=== PATIENT | female | born 1965 | race Caucasian/White ===

== ENCOUNTER 2020-06-24 07:36 | Outpatient (CLI) | payer MEDICARE, MEDICAID, SELFPAY ==
--- NOTE | ~2020-06-24 | US_ITS ---
EXAMINATION: US aorta DATE: 06/24/2020 09:15 INDICATION: Aortic ectasia TECHNIQUE: Grayscale, color Doppler, and pulsed Doppler images of the aorta and common iliac arteries were obtained. COMPARISON: None. FINDINGS: The proximal aorta measures 2.0 cm. The mid aorta measures 1.6 cm. Infrarenal fusiform distal aortic aneurysm measuring 3.4 cm in maximal diameter. The right common iliac artery measures 1.2 cm. The lef t common iliac artery measures 1.0 cm. IMPRESSION: 1. 3.4 cm fusiform infrarenal abdominal aortic aneurysm. Reviewed, dictated and finalized at location A.
== END 2020-06-24 07:37 | disposition home or self-care (01) ==
LOC: CHSIMG 07:40
PROVIDERS: PCP Physician Assistant; Visit Provider Physician Assistant
DX: I77.811 Abdominal aortic ectasia (principal)
CPT/HCPCS: 76775

== ENCOUNTER 2020-12-24 07:38 | Outpatient (CLI) | payer OTHER, SELFPAY ==
--- NOTE | ~2020-12-24 | US_ITS ---
EXAMINATION: US aorta DATE: 12/24/2020 08:39 IV THERAPY NURSE INDICATION: [place] aortic aneurysm. TECHNIQUE: Grayscale, color Doppler, and pulsed Doppler images of the aorta and common iliac arteries were obtained. COMPARISON: Ultrasound dated 06/24/2020. FINDINGS: The proximal aorta measures 2.4 cm greatest sagittal dimension. The mid aorta measures 1.7 cm greates t sagittal dimension. The distal aorta measures 3.4 cm greatest sagittal dimension. The infrarenal ab dominal aortic aneurysm has a fusiform appearance and is partially thrombosed. There is moderate diff use atherosclerosis. The iliac arteries are not visualized. IMPRESSION: 1. Stable fusiform infrarenal abdominal aortic aneurysm measuring 3.4 cm. Reviewed, dictated and finalized at location A. THERAPY NURSE
[2020-12-24 07:52] LABS: Basophils Absolute Auto 0.04 K/mm3 (0.00-0.10); Basophils Percent Auto 0.5 % (0.0-1.0); Eosinophils Absolute Auto 0.11 K/mm3 (0.02-0.50); Eosinophils Percent Auto 1.4 % (1.0-6.0); Hematocrit 45.8 % (35.0-49.0); Hemoglobin 14.7 g/dL (12.0-15.0); Immature Granulocyte Absolute 0.03 K/mm3 (0.00-0.00); Immature Granulocyte Percent A 0.4 % (0.0-0.0); Lymphocytes Absolute Auto 2.59 K/mm3 (1.10-4.50); Lymphocytes Percent Auto 33.6 % (18.0-42.0); Mean Corpuscular HGB Conc 32.1 g/dL (32.0-36.0); Mean Corpuscular Hemoglobin 31.3 pg (27.0-31.0); Mean Corpuscular Volume 97.7 fL (78.0-102.0); Mean Platelet Volume 10.3 fl (9.2-11.8); Monocytes Absolute Auto 0.64 K/mm3 (0.10-0.90); Monocytes Percent Auto 8.3 % (2.0-11.0); Neutrophils Absolute Auto 4.3 K/mm3 (1.7-7.2); Neutrophils Percent Auto 55.8 % (50.0-70.0); Platelet Count Result 234 K/mm3 (150-420); Red Blood Count 4.69 M/mm3 (4.20-5.40); Red Cell Distribution Width 13.7 % (11.6-14.4); White Blood Count 7.7 K/mm3 (4.8-10.8)
[2020-12-24 08:47] LABS: Alanine Aminotransferase 40 U/L (14-59); Albumin Level 3.2 g/dL (3.4-5.0); Alkaline Phosphatase 138 U/L (46-116); Anion Gap 7 mmol/L (8-16); Aspartate Amino Transferase 20 U/L (15-37); Bilirubin,Total 0.2 mg/dL (0.00-1.00); Blood Urea Nitrogen 18 mg/dL (7-18); Calcium 9.3 mg/dL (8.5-10.1); Carbon Dioxide 31 mmol/L (21-32); Chloride 105 mmol/L (98-108); Estimated Glomerular Filt Rate > 60; Glucose 113 mg/dL (70-99); Osmolality Calculated 298 mOsm/kg (285-295); Potassium 3.8 mmol/L (3.5-5.1); Sodium 143 mmol/L (136-145); Total Protein 6.6 g/dL (6.4-8.2)
[2020-12-24 08:49] LABS: CRP < 0.2 mg/dL (0.0-0.9)
[2020-12-24 09:07] LABS: Erythrocyte Sedimentation Rate 22 mm/hr (0-20)
== END 2020-12-24 07:39 | disposition home or self-care (01) ==
PROVIDERS: PCP Family Medicine; Visit Provider Internal Medicine
DX: T84.9XXA Unspecified complication of internal orthopedic prosthetic device, implant and graft, initial encounter (principal); I71.4 Abdominal aortic aneurysm, without rupture
CPT/HCPCS: 36415; 76775; 80053; 85025; 85652; 86140

== ENCOUNTER 2021-06-30 08:41 | Outpatient (CLI) | payer MEDICARE, MEDICAID, SELFPAY ==
--- NOTE | ~2021-06-30 | US_ITS ---
EXAMINATION: US aorta DATE: 06/30/2021 09:15 INDICATION: Abdominal aortic aneurysm TECHNIQUE: Grayscale, color Doppler, and pulsed Doppler images of the aorta and common iliac arteries were obtained. COMPARISON: None. FINDINGS: The proximal aorta measures 1.3 cm. Fusiform aneurysm of the mid to distal abdominal aorta measuring 3.0 cm the mid aorta, 3.4 cm in the mid to distal aorta tapering distally to the aortic bifurcation w hich is obscured by shadowing bowel gas. The right common iliac artery measures 8 mm. The left common iliac artery measures 10 mm. IMPRESSION: 1. Fusiform aneurysm measuring up to 3.4 cm in maximal diameter at the mid to distal abdominal aorta. Reviewed, dictated and finalized at location A. IMPRESSION: 1. Fusiform aneurysm measuring up to 3.4 cm in maximal diameter at the mid to d istal abdominal aorta.
== END 2021-06-30 08:42 | disposition home or self-care (01) ==
LOC: CHSIMG 08:48
PROVIDERS: PCP Family Medicine; Visit Provider Physician Assistant
DX: I71.4 Abdominal aortic aneurysm, without rupture (principal)
CPT/HCPCS: 76775

== ENCOUNTER 2022-07-07 07:39 | Outpatient (CLI) | payer MEDICARE, MEDICAID, SELFPAY ==
--- NOTE | ~2022-07-07 | US_ITS ---
EXAMINATION: US aorta [facility] DATE: 07/07/2022 08:47 CDT INDICATION: Aortic aneurysm. High cholesterol. TECHNIQUE: Grayscale, color Doppler, and pulsed Doppler images of the aorta and common iliac arteries were obtained. COMPARISON: Comparison to multiple prior studies sequentially, with oldest reviewed study dated 12/24. . FINDINGS: The proximal aorta measures 2.1 cm greatest sagittal dimension. The mid aorta measures 1.7 cm sagitta l dimension. The distal aorta measures 3.5 cm sagittal dimension. The right common internal iliac art susi measures 8 mm. The left common iliac artery measures 1 cm. IMPRESSION: 1. Stable fusiform infrarenal abdominal aortic aneurysm measuring 3.5 cm. Reviewed, dictated and finalized at location B.
== END 2022-07-07 07:40 | disposition home or self-care (01) ==
PROVIDERS: PCP Physician Assistant; Visit Provider Physician Assistant
DX: I71.40 Abdominal aortic aneurysm, without rupture, unspecified (principal)
CPT/HCPCS: 76706

== ENCOUNTER 2022-07-14 11:44 | Outpatient (CLI) | payer MEDICARE, MEDICAID, SELFPAY ==
--- NOTE | ~2022-07-14 | CT_ITS ---
EXAMINATION: CT brain wo con DATE: 07/14/2022 12:09 INDICATION: Headache. TECHNIQUE: Computed tomography (CT) of the head was performed without intravenous contrast. The mA wa s adjusted according to patient size. Iterative reconstruction technique was employed. The dose-lengt h product was 529.67 mGy-cm. COMPARISON: None FINDINGS: There is no intracranial hemorrhage, acute infarction, or abnormal intracranial mass lesion . The ventricles are normal in size. The mastoid air cells are normal. The paranasal sinuses are alba r. IMPRESSION: 1. Normal brain. Reviewed, dictated and finalized at location A. IMPRESSION: 1. Normal brain.
== END 2022-07-14 11:45 | disposition home or self-care (01) ==
LOC: CHSIMG 11:48
PROVIDERS: PCP Physician Assistant; Visit Provider Physician Assistant
DX: R51.9 Headache, unspecified (principal)
CPT/HCPCS: 70450

== ENCOUNTER 2022-10-20 12:59 | Outpatient (CLI) | payer MEDICARE, MEDICAID, SELFPAY ==
--- NOTE | ~2022-10-20 | CT_ITS ---
Non-contrast Head CT History: Headache COMPARISON: 07/14/2022 Technique: Axial non-contrast imaging of the brain was performed. Dose reduction technique was used on this scan by utilizing automated exposure control and iterative reconstruction technique. The dose -length product (DLP) was 605.33 mGy-cm. Findings: There is no evidence of intracranial hemorrhage, mass lesion, or acute infarct. Brain par enchyma appears normal. The ventricles and subarachnoid spaces are normal in size. The calvarium ap pears normal. The visualized paranasal sinuses and mastoid air cells are clear. Impression: No significant abnormality seen. Reviewed, dictated and finalized at location . Impression: No significant abnormality seen.
== END 2022-10-20 13:00 | disposition home or self-care (01) ==
LOC: CHSIMG 13:02
PROVIDERS: PCP Family Medicine
DX: G43.711 Chronic migraine without aura, intractable, with status migrainosus (principal); I60.9 Nontraumatic subarachnoid hemorrhage, unspecified
CPT/HCPCS: 70450